=== PATIENT | female | born 1970 | race Caucasian/White ===

== ENCOUNTER 2025-01-24 10:03 | Emergency (ER) | payer OTHER, SELFPAY ==
[2025-01-24 10:04] VITALS: BP 167/83; PULSE 97; RESP 18; TEMP 36.7; O2SAT 99; BMI 38.5
--- NOTE | 2025-01-24 10:07 | XR_ITS ---
WS: [id number] Exam: XR chest 1V portable [id number] Date/Time of Exam: 01/24/2025 10:07 AM Reason For Exam: chest pain No priors. The lungs are clear and fully inflated. Normal cardiomediastinal silhouette and regional bony structures. XR/XR chest 1V portable [id number] IMPRESSION: 1. Negative chest.
--- NOTE | 2025-01-24 10:07 | ECG_ITS ---
[facility]25[facility] Pat Name: Ginger Aguilera Department: Room: Gender: Female Proposal Coordinator: : 1970 Requested By: Reginald Day Order Number: [id number] Phil MD: Isaak Galeano M.D. Measurements Intervals [place] Rate: 89 P: 43 NV: 151 QRS: 12 QRSD: 89 T: 58 QT: 368 QTc: 449 Interpretive Statements SINUS RHYTHM NONSPECIFIC T-WAVE ABNORMALITY No previous ECG available for comparison Electronically Signed On 01-25-2025 19:33:03 CDT by Isaak Galeano M.D. [id number]
--- NOTE | 2025-01-24 10:22 | ED_ITS ---
HPI - Chest Pain 2 General: Chief Complaint: Chest Pain Stated Complaint: Chest Pain Time Seen by Provider: 01/24/25 10:06 History of Present Illness: 54-year-old female presents emergency ro om complaining of chest discomfort and rapid heart rate extremely anxious since of impending doom. She has no known history of coronary disease she does have a history of hypertension and she is diabetic so her blood sugars have been irregular as well recently she is not having chest pain when she arrives here continues to be quite anxious mildly tachypneic. Associated symptoms: Deny abdominal pain, dyspnea or fever(s) Related Data Home Medications ?Medication ?Instructions ?Recorded ?Confirmed ibuprofen 200 mg tablet (Advil) 400 mg PO Q6H PRN Feve r Or Pain 01/24/25 01/24/25 lisinopril 20 mg tablet 20 mg PO DAILY 01/24/2512/28 metformin 1,000 mg tablet 1,000 mg PO BID 01/24/25 semaglutide 2 mg/dose (8 mg/3 mL) 2 mg SUBCUT Q7D 12/2801/24/25 subcutaneous pen injector (Ozempic) Allergies Allergy/AdvReac Type Severity Reaction Status Date / Time butorphanol (From Stadol) Allergy Unknown Verified 01/24/25 10:13 levofloxacin Allergy Unknown Verified 01/24/25 10:13 morphine Allergy Unknown Verified 01/24/25 10:13 piperacillin (From Zosyn) Allergy Unknown Verified 01/24/25 10:13 tazobactam (From Zosyn) Allergy Unknown Verified 01/24/25 10:13 Review of Systems 2 Const: Denies: fever(s) or chills Card: Denies: chest pain Resp: Denies: dyspnea GI: Denies: abdominal pain : Denies: dysuria, urinary frequency or urinary urgency Musc: Denies: neck pain or back pain Skin/Breast: Denies: rash Physical Exam 2 Const: GENERAL APPEARANCE: cooperative ORIENTATION/CONSCIOUSNESS: Yes awake, Yes oriented to person, Yes oriented to place and Yes oriented to time HENMT: COMMON NORMALS: normocephalic, atraumatic and hearing grossly normal bilaterally HEAD & SCALP: normocephalic and atraumatic Resp: COMMON NORMALS: normal respiratory effort, No retractions, No use of accessory muscles and clear to auscultation bilaterally AUSCULTATION: clear to auscultation bilaterally Cardio: COMMON NORMALS: regular rate, regular rhythm and No murmurs present (Cardio) RATE: regular rate RHYTHM: regular rhythm GI: COMMON NORMALS: Soft to palpation and No hepatosplenomegaly present A USCULTATION: Yes normoactive bowel sounds PALPATION: Yes Soft to palpation, No Tenderness to palpation present (GI), No Guarding due to palpation present (GI) and Yes No hepatosplenomegaly present Extremity: COMMON NORMALS: normal to inspection, capillary refill normal, no clubbing, cyanosis or edema, no calf tenderness and no pedal edema Neuro: SENSORIUM/ORIENTATION: Yes oriented to person, Yes oriented to place and Yes oriented to time Skin: COMMON NORMALS: no rashes or lesions noted GENERAL SKIN EXAM: no rashes or lesions noted Course 2 Vital Signs: Vital signs: Vital Signs Temperature 98.1 F 01/24/25 10:04 Pulse Rate 77 01/24/25 12:03 Respiratory Rate 16 01/24/25 12:03 Blood Pressure 144/72 01/24/25 12:03 Pulse Oximetry 96 01/24/25 12:03 Oxygen Delivery Me thod Room Air 01/24/25 12:03 MDM - Chest Pain Medical Decision Making EKGs cardiac enzymes negative no sign of DVT she has not been hypoxic chest x- ray did not show pneumonia or pneumothorax or widening the mediastinum. Suspect majority of her symptoms are anxiety related. I think she has some GI driven symptoms will discharge patient home have her follow-up with her primary care doctor. Will set her up for an outpatient Lexiscan sestamibi stress test Medical Records I reviewed the patient's medical records. Lab Data I reviewed the patient's lab results. 01/24/25 10:32 01/24/25 10:32 Radiology Impressions Chest X-Ray 01/24/25 10:07 IMPRESSION: 1. Negative chest. Laboratory Results WBC 9.90 10^3/uL (3.29-11.43) 01/24/25 10:32 RBC 4.89 10^6/uL (3.85-5.65) 01/24/25 10:32 Hgb 13.60 g/dL (11.27-16.99) 01/24/25 10:32 Hct 41.3 % (36-47) 01/24/25 10:32 MCV 84.5 fl (85-98) L 01/24/25 10:32 MCH 27.8 pg (27-33) 01/24/25 10:32 MCHC 32.9 g/dL (30-55) 01/24/25 10:32 RDW 13.2 % (12.1-15.1) 01/24/25 10:32 Plt Count 272 10^3/cmm (157-399) 01/24/25 10:32 MPV 11.1 fL (7.4-10.4) H 01/24/25 10:32 Neut % (Auto) 63.8 % 01/24/25 10:32 Lymph % (Auto) 28.4 % 01/24/25 10:32 [place] % (Auto) 5.1 % 01/24/25 10:32 Eos % (Auto) 1.7 % 01/24/25 10:32 Baso % (Auto) 0.6 % 01/24/25 10:32 Neut # (Auto) 6.32 10^3/uL (1.8-7.7) 01/24/25 10:32 Lymph # (Auto) 2.8 10^3/uL (0.8-4.8) 01/24/25 10:32 [place] # (Auto) 0.5 10^3/uL (0.2-0.9) 01/24/25 10:32 Eos # (Auto) 0.2 10^3/uL (0.0-0.8) 01/24/25 10:32 Baso # (Auto) 0.1 10^3/uL (0.0-0.1) 01/24/25 10:32 Nucleated RBC % (auto) 0 % 01/24/25 10:32 Nucleated RBCs # 0.0 /100WBC 01/24/25 10:32 Sodium 137 mmol/L (136-145) 01/24/25 10:32 Potassium 4.5 mmol/L (3.5-5.1) 01/24/25 10:32 Chloride 99 mmol/L (98-107) 01/24/25 10:32 Carbon Dioxide 25 mmol/L (22-29) 01/24/25 10:32 Anion Gap 17.5 (5-19) 01/24/25 10:32 BUN 12 mg/dL (6-20) 01/24/25 10:32 Creatinine 0.6 mg/dL (0.5-0.9) 01/24/25 10:32 GFR Calculation 104.2 mL/min (90-130) 01/24/25 10:32 Glucose 166 mg/dL (65-115) H 01/24/25 10:32 POC Glucose 111 mg/dL (70-110) H 01/24/25 13:01 Calculated Osmolality 288 mOsm/kg (285-295) 01/24/25 10:32 Calcium 9.3 mg/dL (8.5-10.5) 01/24/25 10:32 Total Bilirubin 0.4 mg/dL (0.15-1.2) 01/24/25 10:32 AST 11 U/L (0-32) 01/24/25 10:32 ALT 17 U/L (0-33) 01/24/25 10:32 Alkaline Phosphatase 113 U/L (35-105) H 01/24/25 10:32 Troponin T Baseline 8 ng/L (0-10) 01/24/25 10:32 Troponin T 120 Minute 7.64 ng/L (0-10) 01/24/25 12:36 Delta Troponin T -0.36 ABS# (0-10) L 01/24/25 12:36 Total Protein 6.8 g/dL (6.6-8.7) 01/24/25 10:32 Albumin 4.5 g/dL (3.5-5.2) 01/24/25 10:32 Globulin 2.3 g/dL (1.3-4.6) 01/24/25 10:32 Urine Color Yellow (Yellow) 01/24/25 10:15 Urine Appearance Clear (CLEAR) 01/24/25 10:15 Urine pH 6.0 (5-7) 01/24/25 10:15 Ur Specific [place] 1.017 (1.005-1.030) 01/24/25 10:15 Urine Protein 1+ (Negative) A 01/24/25 10:15 Urine Glucose (UA) Negative (Normal) 01/24/25 10:15 Urine Ketones Negative (Negative) 01/24/25 10:15 Urine Blood Negative (Negative) 01/24/25 10:15 Urine Nitrate Negative (Negative) 01/24/25 10:15 Urine Bilirubin Negative (Negative) 01/24/25 10:15 Urine Urobilinogen 0.2 mg/dL (Negative) 01/24/25 10:15 Ur Leukocyte Esterase Negative (Negative) 01/24/25 10:15 Urine RBC 0-2 /hpf (0-2) 01/24/25 10:15 Urine WBC 0-5 /hpf (0-5) 01/24/25 10:15 Ur Squamous Epith Cells 0-5 /hpf (0-5) 01/24/25 10:15 Amorphous Sediment Not Reportable 01/24/25 10:15 Urine Bacteria None seen /hpf (NONE) 01/24/25 10:15 Hyaline Casts 0.40 /lpf 01/24/25 10:15 All radiology interpretation(s) finalized by discharge Discharge Plan Discharge Patient Disposition: Home Clinical Impression: Atypical chest pain, Diabetes mellitus Condition: Stable Prescriptions: No Action lisinopril 20 mg tablet 20 mg PO DAILY Patient Comments: Patient states she is not consistant in taking her medications metformin 1,000 mg tablet 1,000 mg PO BID Ozempic 2 mg/dose (8 mg/3 mL) pen injector 2 mg SUBCUT Q7D ibuprofen [Advil] 200 mg Tablet 400 mg PO Q6H PRN (Reason: Fever Or Pain) Discharge Orders: Discharge ED (Routine); Ordered 01/24/25 Ordered By: Reginald Bateman Referrals: Jet Perez DO [Primary Care Provider, Emergency Medicine] Discharge Diet: Usual diet Discharge Activity: Resume usual activity Patient Instructions: Opioid Safety, Pain Management, Patient Portal & Ronnie Instructions Activity Restrictions/Additional Instructions: Thank you for choosing [facility] for your healthcare needs today. It is very important that you follow up as instructed or that you return to the Emergency Department should you have concerns or if your condition changes or worsens in any way. Emergency department visits are focused on emergent conditions, in some cases you may require further evaluation on an outpatient basis. You were seen in the emergency room with complaints of chest discomfort. Cardiac enzymes and EKG were normal. Your other lab tests are also unremarkable. Suspect some of your symptoms may be related to gastrointestinal some related potentially to anxiety. Recommend you start an [id number] Pepcid or Prilosec. Follow-up with your primary care doctor. You had asked about blood sugar control recommend you follow-up with your primary care doctor regarding blood pressure sugar management. (Please note that included in your discharge packet is information concerning opioid safety and pain management. This information is given to all patients were discharged from the ER regardless of their discharge diagnosis or the medicines they usually take or are prescribed.) Print Language: Gabonese Coding Level of Care Code ED Education Courses Sales Representative for Chg Fwd Heart Score HEART Score Components History: Slightly Suspicous EKG: Normal Age: 45-64 yrs Risk Factors: 1 or 2 Risk Factors Troponin: Baseline Trop <16 ng/L HEART Score RESULT HEART Score: 2
--- OUTSIDE RECORDS SUMMARY | 2025-01-24 10:27 | XMS_ITS | Encounter Summary ---
Author Organization [facility] Address [address] [place] [address] Care Team Providers Care Reel Worker Name Role Phone Ollie Avilez MD Primary Care Provider + Encounter Details Date Type Department Care Team (Late st Contact Info) Description 10/24/2004 Outpatient Historical 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
--- OUTSIDE RECORDS SUMMARY | 2025-01-24 10:27 | XMS_ITS | Encounter Summary ---
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
--- OUTSIDE RECORDS SUMMARY | 2025-01-24 10:27 | XMS_ITS | Encounter Summary ---
Author Organization [facility] Address [address] [place] [address] Care Team Providers Care Global Professional Name Role Phone Ollie Avilez MD Primary Care Provider + Encounter Details Date Type Department Care Team (Latest Contact Info) Description 07/11/1999 Outpatient Historical [facility] [address] [place] [address] Benedicto Mir MD NO ADDRESS ON FILE Abdominal (Primary Dx) Social History Tobacco Use Types Packs/Day Years Used Date Smoking Tobacco: Never Assessed Comments Unknown Sex and Gender Information Value Date Recorded Sex Assigned at Not on file Legal Sex Female 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
--- OUTSIDE RECORDS SUMMARY | 2025-01-24 10:27 | XMS_ITS | Encounter Summary ---
Author Organization [facility] Address [address] [place] [address] Care Team Providers Care Commutator Inspector Name Role Phone Ollie Avilez MD Primary Care Provider + Encounter Details Date Type Department Care Team (Latest Contact Info) Description 12/24/1997 Outpatient Historical [facility] [address] [phone] Lexa Echavarria MD [address] [place] [phone] General counseling for prescription of oral contraceptives (Primary Dx); Dysthymic disorder Social History Tobacco Use Types Packs/Day Years Used Date Smoking Tobacco: Never Assessed Comments Unknown Sex and Gender Information Value Date Recorded Sex Assigned at Not on file 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
--- OUTSIDE RECORDS SUMMARY | 2025-01-24 10:27 | XMS_ITS | Encounter Summary ---
Author Organization [facility] Address [address] [facility] Attn: [place] [address] Care Team Providers Care Petroleum Laboratory Technician Name Role Phone Ollie Avilez MD Primary Care Provider + Encounter Details Date Type Department Care Team (Late st Contact Info) Description 07/18/1999 Outpatient Historical Carrington Lam MD [address] [facility] [address] [place] [phone] Social History Tobacco Use Types Packs/Day Years Used Date Smoking Tobacco: Never Assessed Comments Unknown Sex and Gender Information Value Date Recorded Sex Assigned at Not on file Legal Sex Female 4:46 AM DIE SINKING MACHINE OPERATOR Gender Identity Not on file Sexual Orientation Not on file documented as of this encounter Plan of Treatment Not on file documented as of this encounter Visit Diagnoses Not on filedocumented in this encounter Care Teams Petroleum Laboratory Technician Relationship Specialty Start Date End Date Ollie Avilez MD PCP - General Family Practice 05/21/15 documented as of this encounter
--- OUTSIDE RECORDS SUMMARY | 2025-01-24 10:27 | XMS_ITS | Encounter Summary ---
Author Organization [facility] Address [address] [facility] Attn: Epic Prelude [place]T [place] [address] Care Team Providers Care Chief Marketing Officer Name Role Phone Ollie Avilez MD Primary Care Provider + Encounter Details Date Type Department Care Team (Late st Contact Info) Description 07/11/1999 Outpatient Historical Benedicto Mir MD NO ADDRESS ON FILE Social History Tobacco Use Types Packs/Day Years Used Date Smoking Tobacco: Never Assessed Comments Unknown Sex and Gender Information Value Date Recorded Sex Assigned at Not on file Legal Sex Female 4:46 AM MEDICAL DIRECTOR/HEAD TEAM PHYSICIAN Gender Identity Not on file Sexual Orientation Not on file documented as of this encounter Plan of Treatment Not on file documented as of this encounter Visit Diagnoses Not on filedocumented in this encounter Care Teams Chief Marketing Officer Relationship Specialty Start Date End Date Ollie Avilez MD PCP - General Family Practice 05/21/15 documented as of this encounter
--- OUTSIDE RECORDS SUMMARY | 2025-01-24 10:27 | XMS_ITS | Encounter Summary ---
Author Organization [facility] Address [address] [place] [address] Care Team Providers Care Bowling Floor Desk Clerk Name Role Phone Ollie Avilez MD Primary Care Provider + Encounter Details Date Type Department Care Team (Late st Contact Info) Description 06/17/1998 Outpatient Historical [facility] [address] [place] [address] [place] [address] Social History Tobacco Use Types Packs/Day Years Used Date Smoking Tobacco: Never Assessed Comments Unknown Sex and Gender Information Value Date Recorded Sex Assigned at Not on file Legal Sex Female 4:46 AM BENCH PRECISION ASSEMBLER Gender Identity Not on file Sexual Orientation Not on file documented as of this encounter Plan of Treatment Not on file documented as of this encounter Visit Diagnoses Not on filedocumented in this encounter Care Teams Bowling Floor Desk Clerk Relationship Specialty Start Date End Date Ollie Avilez MD PCP - General Family Practice 05/21/15 documented as of this encounter
--- OUTSIDE RECORDS SUMMARY | 2025-01-24 10:27 | XMS_ITS | Encounter Summary ---
Author Organization [facility] Address [address] [place] [address] Care Team Providers Care Nuclear Supervising Operator Name Role Phone Ollie Avilez MD Primary Care Provider + Encounter Details Date Type Department Care Team (Latest Contact Info) Description 08/18/2000 Outpatient Historical [facility] Steve Lewis, DO [address] [place] [address] Abdominal pain, unspecified site (Primary Dx) Social History Tobacco Use Types Packs/Day Years Used Date Smoking Tobacco: Never Assessed Comments Unknown Sex and Gender Information Value Date Recorded Sex Assigned at Not on file Legal Sex Female 4:46 AM DRAFTER TOPOGRAPHICAL Gender Identity Not on file Sexual Orientation Not on file documented as of this encounter Plan of Treatment Not on file documented as of this encounter Visit Diagnoses Diagnosis Abdominal pain, unspecified site- Primary documented in this encounter Care Teams Nuclear Supervising Operator Relationship Specialty Start Date End Date Ollie Avilez MD PCP - General Family Practice 05/21/15 documented as of this encounter
--- OUTSIDE RECORDS SUMMARY | 2025-01-24 10:27 | XMS_ITS | Encounter Summary ---
Author Organization [facility] Address [address] [place] [address] Care Team Providers Care Crew Truck Driver Name Role Phone Ollie Avilez MD Primary Care Provider + Encounter Details Date Type Department Care Team (Latest Contact Info) Description 04/29/2000 Outpatient Historical [facility] KILLINGWORTH BAKERY HELPER Steve Lewis, DO [address] [place] [address] Other specified aftercare following surgery (Primary Dx) Social History Tobacco Use Types Packs/Day Years Used Date Smoking Tobacco: Never Assessed Comments Unknown Sex and Gender Information Value Date Recorded Sex Assigned at Not on file Legal Sex Female 4:46 AM TIRE BALANCER Gender Identity Not on file Sexual Orientation Not on file documented as of this encounter Plan of Treatment Not on file documented as of this encounter Visit Diagnoses Diagnosis Other specified aftercare following surgery- Primary documented in this encounter Care Teams Crew Truck Driver Relationship Specialty Start Date End Date Ollie Avilez MD PCP - General Family Practice 05/21/15 documented as of this encounter
--- OUTSIDE RECORDS SUMMARY | 2025-01-24 10:27 | XMS_ITS | Encounter Summary ---
Author Organization [facility] Address [address] [place] [address] Care Team Providers Care Manufacturing Coordinator Name Role Phone Ollie Avilez MD Primary Care Provider + Encounter Details Date Type Department Care Team (Latest Contact Info) Description 04/15/2000 Outpatient Historical [facility] BLUE EYE FRAME STRAIGHTENER Steve Lewis, DO [address] [place] [address] Supervision of other normal (Primary Dx) Social History Tobacco Use Types Packs/Day Years Used Date Smoking Tobacco: Never Assessed Comments Unknown Sex and Gender Information Value Date Recorded Sex Assigned at Not on file Legal Sex Female 4:46 AM TUBER OPERATOR Gender Identity Not on file Sexual Orientation Not on file documented as of this encounter Plan of Treatment Not on file documented as of this encounter Visit Diagnoses Diagnosis Supervision of other normal - Primary documented in this encounter Care Teams Manufacturing Coordinator Relationship Specialty Start Date End Date Ollie Avilez MD PCP - General Family Practice 05/21/15 documented as of this encounter
--- OUTSIDE RECORDS SUMMARY | 2025-01-24 10:27 | XMS_ITS | Clinical Summary ---
Author Organization [facility] Address [address] [place] [address] Phone Care Team Providers Care Regulatory Submissions Associate Name Role Phone Ollie Avilez MD Primary Care Provider + Allergies Active Allergy Reactions Criticality Noted Date Comments Butorphanol Tartrate Hallucination High 03/20/2011 Fd And C Blue No.1 Anaphylaxis High 10/08/2010 Levofloxacin Anaphylaxis High 08/16/2018 Morphine Anaphylaxis High 10/08/2010 Piperacillin-Tazobactam Anaphylaxis High 08/16/2018 Medications magnesium oxide 500 mg Capsule Take 500 mg by mouth daily. Active cyanocobalamin (VITAMIN B-12) 100 mcg tablet Take 100 mcg by mouth daily. Active multivitamin (DAILY-MELISSA) tablet Take 1 Tablet by mouth daily. Active CPAP / BIPAP suppliesIndicat ions:ANABELA treated with BiPAP Length of need: 99 months Mask Type: nasal with headgear every 6 months, mask only every 3 months,1 cushions per month. Tubing: heated 1 every 3 months, water chamber 1 every 6 months, chin strap 1 every 6 months, filters disposable 2 per month, filters reusable 1 per 6 months.. 1 Each 08/16/2018 Active metFORMIN (GLUCOPHAGE) 1,000 mg tablet Take 1 Tablet (1,000 mg) by mouth 2 times daily. 180 Tablet 3 01/24/2019 Active Active Problems Problem Noted Date Diagnosed Date Morbid obesity 03/20/2012 Stress incontinence, female 03/20/2012 Thyroid nodule 03/10/2012 Screening for cervical cancer 03/07/2012 Overview (03/07/2012): Normal 02/26/12 Dyslipidemia (high LDL; low HDL) 11/12/2010 Type II or unspecified type diabetes mellitus without mention of complication, not stated as uncontrolled 11/12/2010 Immunizations Immunization Administration Dates Next Due Influenza Seasonal Unspecified Formulation IM Family History Medical History Relation Name Comments Unknown Father Hypertension Mother Other Mother Respiratory Disease Mother Relation Name Status Comments Father Alive Mother Alive Social History Tobacco Use Types Packs/Day Years Used Date Smoking Tobacco: Never Smokeless Tobacco: Never Tobacco Cessation:Counseling Given: No Alcohol Use Standard Drinks/Week Comments Not Asked 0 (1 standard drink = 0.6 oz pur e alcohol) Comments No Sex and Gender Information Value Date Recorded Sex Assigned at Not on file Legal Sex Female 4:46 AM SHOVEL LOADER OPERATOR Gender Identity Not on file Sexual Orientation Not on file Last Filed Vital Signs Vital Sign Reading Time Taken Comments Blood Pressure 122/88 08/16/2018 1:23 PM CDT Pulse 103 08/16/2018 1:23 PM CDT Temperature 36.2 C (97.2 F) 08/16/2018 1:23 PM CDT Respiratory Rate 20 12/13/2015 3:39 PM CDT Oxygen Saturation 96% 08/16/2018 1:23 PM CDT Inhaled Oxygen Concentration - - Weight 121 kg (266 lb 12.8 oz) 08/16/2018 1:23 P M CDT Height 157.5 cm (5' 2 ) 08/16/2018 1:23 PM CDT Body Mass Index 48.8 08/16/2018 1:23 PM CDT Plan of Treatment Health Maintenance Due Date Last Done Comments DIABETES ANNUAL RETINAL EXAM 1988 DTAP/TDAP/TD VACCINES (1 - Tdap) 1989 HEPATITIS B VACCINES (1 of 3 - 19+ 3-dose series) 1989 BREAST CANCER SCREENING 2010 DIABETES ANNUAL FOOT EXAM 11/11/2011 11/10/2010 DIABETES MICROALBUMIN ANNUAL SCREEN 11/11/2011 11/10/2010 PAP SMEAR 02/25/2015 02/26/2012, 08/09/2008 COLORECTAL SCREENING 12/01/2015 Colorectal Cancer Screening 12/01/2015 FIT-DNA Q 3 years 12/01/2015 FIT/FOBT Q 1 year 12/01/2015 Flex Sig/CT Colonography Q 5 years 12/01/2015 LDL CHOLESTEROL ANNUAL 05/17/2016 6, 04/08/2012, 11/10/2010 CERVICAL CANCER SCREENING 02/25/2017 HPV/Cotest (21-29) 02/25/2017 02/26/2012 HPV/Cotest (30-65) 02/25/2017 02/26/2012 DIABETES HBA1C Q 6 MONTHS 02/16/20192018, 12/13/2015, 08/16/2015, Additional history exists ZOSTER VACCINE (1 of 2) 2020 INFLUENZA VACCINE (#1) 2024 03/02/2003 Procedures Procedure Name Priority Date/Time Associated Diagnosis Comments HEMOGLOBIN A1C Routine 08/16/2018 2:38 PM CDT Type 2 diabetes mellitus without complication, without long-term current use of insulin (CMS/[facility]) LIPID PANEL Routine 05/17/2015 2:32 PM SHOVEL LOADER OPERATOR Mixed hyperlipidemia CERV/VAG CYTOPATH, THIN PREP IMAGR RFLX HPV Routine 02/26/2012 3:50 PM SHOVEL LOADER OPERATOR MICROALBUMIN/CREATI NINE RATIO, RANDOM UR Routine 11/10/2010 11:07 AM CDT DM w/o complication type II (CMS/[facility]) from Last 3 Months or Most Recently Relevant to Health Maintenance Results * (ABNORMAL) HEMOGLOBIN A1C (08/16/2018 2:38 PM CDT) HEMOGLOBIN A1C 8.2(H) See Comment % 08/16/2018 8:43 PM CDT [facility] EST. AVG GLUCOSE, A1C 189 mg/dL 08/16/2018 8:43 PM CDT [facility] Blood Venipuncture / Unknown 08/16/2018 2:38 PM CDT 08/16/2018 8:10 PM CDT Narrative [facility] - 08/16/2018 8:43 PM CDT HGB A1C INTERPRETATION NORMAL: <5.7% PRE-DIABETES: 5.7 - 6.4% DIABETES: 6.5% OR GREATER Falsely low A1C measurements can occur when: 1. Anemia and/or hemolytic anemia is present. 2. Hemoglobin variants present. 3. Renal failure. 4. Transfusion of blood product in the last 120 days. We recommend ordering a fructosamine test([id number]) to more accurately assess glycemic status if any of the above conditions are present. us Hellen Garibay FILTER PRESS TENDER CHEMISTRY ORDERABLES Final Re sult [facility] CLIA# [id number] [address] [place] [address] * (ABNORMAL) LIPID PANEL (05/17/2015 2:32 PM SHOVEL LOADER OPERATOR) [facility] CHOLESTEROL 178 <200 mg/dL 05/17/2015 8:43 PM [facility] TRIGLYCERIDE 203(H) <150 mg/dL 05/17/2015 8:43 PM [facility] ALEXA HDL 35(L) 40 - 59 mg/dL 05/17/2015 8:43 PM [facility] LDL CALCULATED 102(H) <100 mg/dL 05/17/2015 8:43 PM [facility] NON-HDL CHOLESTEROL 143(H) <130 mg/dL 05/17/2015 8:43 PM [facility] Blood Collection / Unknown 05/17/2015 2:32 PM SHOVEL LOADER OPERATOR 05/17/2015 8:04 PM SHOVEL LOADER OPERATOR Narrative [facility] - 05/17/2015 8:43 PM SHOVEL LOADER OPERATOR TOTAL CHOLESTEROL mg/dL Desirable <200 Borderline high 200-239 High >=240 TRIGLYCERIDES mg/dL Normal <150 Borderline high 150-199 High 200-499 Very high >=500 HDL CHOLESTEROL mg/dL Low <40 Normal 40-59 Desirable >=60 LDL CHOLESTEROL mg/dL Optimal <100 Low risk 100-129 Borderline high 130-159 High 160-189 Very high >=190 NON HDL CHOLESTEROL mg/dL Optimal <130 Near Optimal 130-159 Borderline High 160-189 High 190-219 Very high >=220 Based on AHA/NCEP Guidelines us Ollie Avilez MD CHEMISTRY ORDERABLES Fin al Result [facility] CLIA# [id number] [address] [place] [address] * CERV/VAG CYTOPATH, THIN PREP IMAGR RFLX HPV (02/26/2012 3:50 PM SHOVEL LOADER OPERATOR) [facility] COMB SETTER CYTOLOGY REPORT REFLEX HPV [facility] Anatomic Pathology Dept [address] [address] Patient: GINGER AGUILERA Accn No: [id number] , [id number] Collected: 02/26/2012 3:50:00 PM All cases except those with a DP prefix are performed by pathologists from [facility] at [facility]. Case type DP is performed by Dr. Elías Brady, [facility], [facility] [address], [address], [place] [address] (CLIA #[id number]) (Ph. [phone]). COMB SETTER PAP - REFLEX HPV History Specimen Type: Endocervical LMP: 02/16/12 Previous Pap History: 2001 WNL Specimen Adequacy Satisfactory for interpretation. The smear shows sufficient numbers of endocervical or metaplastic cells. Diagnosis NEGATIVE FOR INTRAEPITHELIAL LESION OR MALIGNANCY. (Previously noted as Within Normal Limits). Elevator Builder/ EDR Pathologist: 03/04/12 Completed by: NAHUN GU BSCT (ASCP) (Electronically signed by) 03/04/12 Comment Routine follow-up is suggested. Important Information About Pap Smears The Pap smear is associated with a low but well-documented and probably irreducible false negative rate of up to 10%. Additionally, the false positive rate for a diagnosis of invasive carcinoma or HSIL has been estimated to be approximately 1-10%. Therefore, any visible lesion on the cervix should be biopsied regardless of Pap smear findings. HPV Testing off the Thin Prep vial can be done as a means of further evaluating a Thin Prep Report. For information about ordering the HPV test, phone Virology at . Treatment or follow-up recommendations (if any) that are contained within this report are based upon general recommendations as contained in 2001 Consensus Guidelines For Cervical Cytological Abnormalities DE: July 20, 2001, and are provided as a general guideline rather than as a specific recommendation. Final decisions about the most appropriate treatment and follow-up should be made on an individualized basis by the treating physician in consultation with his/her patient. [facility] [employer] [facility] 02/26/2012 3:50 PM SHOVEL LOADER OPERATOR Anitha Valentino MD PATHOLOGY/CYTOLOGY ORDERAB LES Edited Performing Organization Address City/[facility] Co de Phone Number INTERFACE SYSTEM Refer to clinic/hospital department [facility] CLIA# [id number] [address] [place] [address] * MICROALBUMIN/CREATININE RATIO, RANDOM UR (11/10/2010 11:07 AM CDT) MICROALBUMIN URINE 0.4 MG/DL [facility] Creatinine, Urine 115 MG/DL [facility] MICROALBUMIN/CREA T RATIO, UR 3.5 MCG/MG CREAT. [facility] Comment: NORMAL: <30 MCG/MG CREAT MICROALBUMINURIA: 30-300 MCG/MG CREAT CLINICAL ALBUMINURIA: >300 MCG/MG CREAT Urine specimen (specimen) 11/10/2010 11:07 AM CDT 11/10/2010 11:08 AM CDT Result [facility] Anitha Valentino MD URINE ORDERABLES Final Res ult Performing Organization Address [facility] de Phone Number [facility] CLIA# [id number] [address] [place] [address] from Last 3 Months or Most Recently Relevant to Health Maintenance Insurance BLUE CROSS PATHWAY(X) EXCHANGE BLUE CROSS PATHWAY(X) EXCHANGE Care Teams Regulatory Submissions Associate Relationship Specialty Start Date End Date Ollie Avilez MD PCP - General Family Practice 05/21/15
--- OUTSIDE RECORDS SUMMARY | 2025-01-24 10:27 | XMS_ITS | Encounter Summary ---
Author Organization [facility] Address [address] [place] [address] Care Team Providers Care Logging Worker Name Role Phone Ollie Avilez MD Primary Care Provider + Encounter Details Date Type Department Care Team (Late st Contact Info) Description 03/02/2003 Outpatient Historical [facility] Medicine [address] [phone] Navneet Garza, DO [address] [place] [address] Vaccine for influenza (Primary Dx) Social History Tobacco Use Types Packs/Day Years Used Date Smoking Tobacco: Never Assessed Comments Unknown Sex and Gender Information Value Date Recorded Sex Assigned at Not on file Legal Sex Female 4:46 AM RECREATION SUPERINTENDENT Gender Identity Not on file Sexual Orientation Not on file documented as of this encounter Plan of Treatment Not on file documented as of this encounter Visit Diagnoses Diagnosis Vaccine for influenza- Primary Need for prophylactic vaccination and inoculation against influenza documented in this encounter Care Teams Logging Worker Relationship Specialty Start Date End Date Ollie Avilez MD PCP - General Family Practice 05/21/15 documented as of this encounter
--- OUTSIDE RECORDS SUMMARY | 2025-01-24 10:27 | XMS_ITS | Clinical Summary ---
Author Organization [facility] Address [address] Attn: Epic Prelude ADT [place] [address] Care Team Providers Care Tying Machine Operator Name Role Phone Ollie Avilez MD Primary Care Provider + Allergies Active Allergy Reactions Criticality Noted Date Comments Butorphanol Tartrate Hallucination High 03/20/2011 Fd And C Blue No.1 Anaphylaxis High 10/08/2010 Levofloxacin Anaphylaxis High 08/16/2018 Morphine Anaphylaxis High 10/08/2010 Piperacillin-Tazobactam Anaphylaxis High 08/16/2018 Medications metFORMIN (GLUCOPHAGE) 1,000 mg tablet Take 1 Tablet (1,000 mg) by mouth 2 times daily. 180 Tablet 3 9 Active cyanocobalamin (VITAMIN B-12) 100 mcg tablet Take 100 mcg by mouth daily. 9 Active magnesium oxide 500 mg Capsule Take 500 mg by mouth daily. 9 Active multivitamin (DAILY-MELISSA) tablet Take 1 Tablet by mouth daily. 9 Active CPAP / BIPAP suppliesIndicat ions:ANABELA treated with BiPAP Length of need: 99 monthsMask Type: nasal with headgear every 6 months, mask only every 3 months,1 cushions per month. Tubing: heated 1 every 3 months, water chamber 1 every 6 months, chin strap 1 every 6 months, filters disposable 2 per month, filters reusable 1 per 6 months.. 1 Each 0 9 Active Active Problems Problem Noted Date Diagnosed Date Stress incontinence, female 03/20/2012 Morbid obesity 03/20/2012 Thyroid nodule 03/10/2012 Screening for cervical cancer 03/07/2012 Overview (07/25/2020): Normal 02/26/12 Dyslipidemia (high LDL; low HDL) [...] Date Smoking Tobacco: Never Smokeless Tobacco: Never Alcohol Use Standard Drinks/Week Comments Not Asked 0 (1 standard drink = 0.6 oz pur e alcohol) Comments Unknown Sex and Gender Information Value Date Recorded Sex Assigned at Not on file Legal Sex Female 5:24 AM HEATING AND VENTILATING WORKER Gender Identity Not on file Sexual Orientation Not on file Last Filed Vital Signs Vital Sign Reading Time Taken Comments Blood Pressure 122/88 08/16/2018 1:23 PM CDT Pulse 103 08/16/2018 1:23 PM CDT Temperature 36.2 C (97.2 F) 08/16/2018 1:23 PM CDT Respiratory Rate 20 12/13/2015 3:39 PM CDT Oxygen Saturation - - Inhaled Oxygen Concentration - - Weight 121 kg (266 lb 12.8 oz) 08/16/2018 1:23 P M CDT Height 157.5 cm (5' 2 ) 08/16/2018 1:23 PM CDT Body Mass Index 48.8 08/16/2018 1:23 PM CDT Plan of Treatment Health Maintenance Due Date Last Done Comments DIABETES ANNUAL RETINAL EXAM 1988 DIABETES MICROALBUMIN ANNUAL SCREEN 1988 DTAP/TDAP/TD VACCINES (1 - Tdap) 1989 HEPATITIS B VACCINES (1 of 3 - 19+ 3-dose series) 1989 HPV/Cotest (21-29) 12/01/1991 CERVICAL CANCER SCREENING 2000 HPV/Cotest (30-65) 2000 PAP SMEAR 2000 BREAST CANCER SCREENING 2010 DIABETES ANNUAL FOOT EXAM 11/11/2011 11/10/2010 COLORECTAL SCREENING 12/01/2015 Colorectal Cancer Screening 12/01/2015 FIT-DNA Q 3 years 12/01/2015 FIT/FOBT Q 1 year 12/01/2015 Flex Sig/CT Colonography Q 5 years 12/01/2015 LDL CHOLESTEROL ANNUAL 05/17/2016 05/17/2015 DIABETES HBA1C Q 6 MONTHS 02/16/20192018, 08/16/2018, 12/13/2015, Additional history exists ZOSTER VACCINE (1 of 2) 2020 INFLUENZA VACCINE (#1) 2024 03/02/2003 Procedures Procedure Name Priority Date/Time Associated Diagnosis Comments HEMOGLOBIN A1C Routine 08/16/2018 2:38 PM CDT LIPID PANEL Routine 05/17/2015 2:32 PM HEATING AND VENTILATING WORKER from Last 3 Months or Most Recently Relevant to Health Maintenance Results * (ABNORMAL) HEMOGLOBIN A1C (08/16/2018 2:38 PM CDT) HEMOGLOBIN A1C 8.2(H) See Comment % 08/16/2018 8:43 PM CDT [facility] EST. AVG GLUCOSE, A1C 189 mg/dL 08/16/2018 8:43 PM CDT [facility] Blood Venipuncture / Unknown 08/16/2018 2:38 PM CDT 08/16/2018 8:10 PM CDT Narrative [facility] - 08/16/2018 8:43 PM CDT HGB A1C INTERPRETATION NORMAL: <5.7% PRE-DIABETES: 5.7 - 6.4% DIABETES: 6.5% OR GREATER Falsely low A1C measurements can occur when: 1. Anemia and/or hemolytic anemia is present. 2. Hemoglobin variants present. 3. Renal failure. 4. Transfusion of blood product in the last 120 days. We recommend ordering a fructosamine test([id number]) to more accurately assess glycemic status if any of the above conditions are present. us Hellen Garibay TURBINE ROOM ATTENDANT CHEMISTRY ORDERABLES Final Re sult [facility] CLIA# [id number] [facility] [place] [address] * (ABNORMAL) LIPID PANEL (05/17/2015 2:32 PM HEATING AND VENTILATING WORKER) CHOLESTEROL 178 <200 mg/dL 05/17/2015 8:43 PM [facility] TRIGLYCERIDE 203(H) <150 mg/dL 05/17/2015 8:43 PM [facility] HDL 35(L) 40 - 59 mg/dL 05/17/2015 8:43 PM [facility] A[facility]XA LDL CALCULATED 102(H) <100 mg/dL 05/17/2015 8:43 PM [facility] NON-HDL CHOLESTEROL 143(H) <130 mg/dL 05/17/2015 8:43 PM [facility] Blood Collection / Unknown 05/17/2015 2:32 PM HEATING AND VENTILATING WORKER 05/17/2015 8:04 PM HEATING AND VENTILATING WORKER Narrative [facility] - 05/17/2015 8:43 PM HEATING AND VENTILATING WORKER TOTAL CHOLESTEROL mg/dL Desirable <200 Borderline high [...] Avilez MD CHEMISTRY ORDERABLES Fin al Result [facility] CLIA# [id number] [address] [place] [address] from Last 3 Months or Most Recently Relevant to Health Maintenance Care Teams Tying Machine Operator Relationship Specialty Start Date End Date Ollie Avilez MD [address] [place] [id number] PCP - General Family Practice 05/21/15
--- OUTSIDE RECORDS SUMMARY | 2025-01-24 10:27 | XMS_ITS | Encounter Summary ---
Author Organization [facility] Address [address] [place] [address] Care Team Providers Care Public Policy Mediator Name Role Phone Ollie Avilez MD Primary Care Provider + Encounter Details Date Type Department Care Team (Latest Contact Info) Description 07/11/1999 Outpatient Historical [facility] Medicine[address] [phone] Carrington Lam MD [address] [phone] Unspecified ectopic (Primary Dx) Social History Tobacco Use Types Packs/Day Years Used Date Smoking Tobacco: Never Assessed Comments Unknown Sex and Gender Information Value Date Recorded Sex Assigned at Not on file Legal Sex Female 4:46 AM POWER SEWING MACHINE OPERATOR Gender Identity Not on file Sexual Orientation Not on file documented as of this encounter Plan of Treatment Not on file documented as of this encounter Visit Diagnoses Diagnosis Unspecified ectopic - Primary documented in this encounter Care Teams Public Policy Mediator Relationship Specialty Start Date End Date Ollie Avilez MD PCP - General Family Practice 05/21/15 documented as of this encounter
--- OUTSIDE RECORDS SUMMARY | 2025-01-24 10:27 | XMS_ITS | Encounter Summary ---
Author Organization [facility] Address [address] [place] [address] Care Team Providers Care Leadlighter Name Role Phone Ollie Avilez MD Primary Care Provider + Encounter Details Date Type Department Care Team (Latest Contact Info) Description 05/20/1998 Outpatient Historical [facility] Medicine [address] [phone] Lexa Echavarria MD [address] [place] [phone] Chest pain, unspecified (Primary Dx) Social History Tobacco Use Types Packs/Day Years Used Date Smoking Tobacco: Never Assessed Comments Unknown Sex and Gender Information Value Date Recorded Sex Assigned at Not on file Legal Sex Female 4:46 AM SQL SSRS SSIS DEVELOPER Gender Identity Not on file Sexual Orientation Not on file documented as of this encounter Plan of Treatment Not on file documented as of this encounter Visit Diagnoses Diagnosis Chest pain, unspecified- Primary documented in this encounter Care Teams Leadlighter Relationship Specialty Start Date End Date Ollie Avilez MD PCP - General Family Practice 05/21/15 documented as of this encounter
--- OUTSIDE RECORDS SUMMARY | 2025-01-24 10:27 | XMS_ITS | Encounter Summary ---
Author Organization [facility] Address [address] [place] [address] Care Team Providers Care Clinical Psychiatrist Name Role Phone Ollie Avilez MD Primary Care Provider + Encounter Details Date Type Department Care Team (Latest Contact Info) Description 07/31/1998 Outpatient Historical [facility] Medicine [address] [phone] Lexa Echavarria MD [address] [place] [phone] Acute pharyngitis (Primary Dx); Infective otitis externa, unspecified Social History Tobacco Use Types Packs/Day Years Used Date Smoking Tobacco: Never Assessed Comments Unknown Sex and Gender Information Value Date Recorded Sex Assigned at Not on file Legal Sex Female 4:46 AM WET WASHER MACHINE Gender Identity Not on file Sexual Orientation Not on file documented as of this encounter Plan of Treatment Not on file documented as of this encounter Visit Diagnoses Diagnosis Acute pharyngitis- Primary Infective otitis externa, unspecified documented in this encounter Care Teams Clinical Psychiatrist Relationship Specialty Start Date End Date Ollie Avilez MD PCP - General Family Practice 05/21/15 documented as of this encounter
--- OUTSIDE RECORDS SUMMARY | 2025-01-24 10:27 | XMS_ITS | Encounter Summary ---
Author Organization [facility] Address [address] [place] [address] Care Team Providers Care Gasoline Attendant Name Role Phone Ollie Avilez MD Primary Care Provider + Encounter Details Date Type Department Care Team (Late st Contact Info) Description 05/25/2003 Outpatient Historical [facility] Medicine [address] [phone] Navneet Garza, DO [address] [place] [phone] ACUTE URI NOS (Primary Dx); ACUTE PHARYNGITIS Social History Tobacco Use Types Packs/Day Years Used Date Smoking Tobacco: Never Assessed Comments Unknown Sex and Gender Information Value Date Recorded Sex Assigned at Not on file Legal Sex Female 4:46 AM INTERLOCKING TOWER OPERATOR Gender Identity Not on file Sexual Orientation Not on file documented as of this encounter Plan of Treatment Not on file documented as of this encounter Visit Diagnoses Diagnosis Acute upper respiratory infections of unspecified site- Primary Acute pharyngitis documented in this encounter Care Teams Gasoline Attendant Relationship Specialty Start Date End Date Ollie Avilez MD PCP - General Family Practice 05/21/15 documented as of this encounter
--- OUTSIDE RECORDS SUMMARY | 2025-01-24 10:27 | XMS_ITS | Encounter Summary ---
Author Organization [facility] Address [address] [place] [address] Care Team Providers Care Installation Supervisor Name Role Phone Ollie Avilez MD Primary Care Provider + Encounter Details Date Type Department Care Team (Late st Contact Info) Description 09/07/1998 Outpatient Historical [facility] [address] [place] [address] Social History Tobacco Use Types Packs/Day Years Used Date Smoking Tobacco: Never Assessed Comments Unknown Sex and Gender Information Value Date Recorded Sex Assigned at Not on file Legal Sex Female 4:46 AM CLIENT RELATIONS ASSOCIATE Gender Identity Not on file Sexual Orientation Not on file documented as of this encounter Plan of Treatment Not on file documented as of this encounter Visit Diagnoses Not on filedocumented in this encounter Care Teams Installation Supervisor Relationship Specialty Start Date End Date Ollie Avilez MD PCP - General Family Practice 05/21/15 documented as of this encounter
--- OUTSIDE RECORDS SUMMARY | 2025-01-24 10:27 | XMS_ITS | Encounter Summary ---
Author Organization [facility] Address [address] [place] [address] Care Team Providers Care Marine Engine Machinist Apprentice Name Role Phone Ollie Avilez MD Primary Care Provider + Encounter Details Date Type Department Care Team (Latest Contact Info) Description 07/10/1999 Outpatient Historical [facility] Medicine[address] [address] Carrington Lam MD [address] [phone] Threatened , antepartum (Primary Dx) Social History Tobacco Use Types Packs/Day Years Used Date Smoking Tobacco: Never Assessed Comments Unknown Sex and Gender Information Value Date Recorded Sex Assigned at Not on file Legal Sex Female 4:46 AM AUTOMOBILE BRAKES BONDER Gender Identity Not on file Sexual Orientation Not on file documented as of this encounter Plan of Treatment Not on file documented as of this encounter Visit Diagnoses Diagnosis Threatened , antepartum- Primary documented in this encounter Care Teams Marine Engine Machinist Apprentice Relationship Specialty Start Date End Date Ollie Avilez MD PCP - General Family Practice 05/21/15 documented as of this encounter
--- OUTSIDE RECORDS SUMMARY | 2025-01-24 10:27 | XMS_ITS | Encounter Summary ---
Author Organization [facility] Address [address] [place] [address] Care Team Providers Care Pellet Mill Operator Name Role Phone Ollie Avilez MD Primary Care Provider + Encounter Details Date Type Department Care Team (Latest Contact Info) Description 11/06/2004 Outpatient Historical [facility] Medicine[address] [phone] Mack Hayden MD [address] [place] [id number] URGE INCONTINENCE (Primary Dx); OTHER MALAISE AND FATIGUE; URIN TRACT INFECTION NOS; CLASS MIGRAIN W/O MENTN INTRACTABLE Social History Tobacco Use Types Packs/Day Years Used Date Smoking Tobacco: Never Assessed Comments Unknown Sex and Gender Information Value Date Recorded Sex Assigned at Not on file Legal Sex Female 4:46 AM VERIFICATION MANAGER Gender Identity Not on file Sexual Orientation Not on file documented as of this encounter Plan of Treatment Not on file documented as of this encounter Visit Diagnoses Diagnosis Urge incontinence- Primary Other malaise and fatigue Urinary tract infection, site not specified Migraine with aura, without mention of intractable migraine without mention of status migrainosus documented in this encounter Care Teams Pellet Mill Operator Relationship Specialty Start Date End Date Ollie Avilez MD PCP - General Family Practice 05/21/15 documented as of this encounter
--- OUTSIDE RECORDS SUMMARY | 2025-01-24 10:27 | XMS_ITS | Encounter Summary ---
Author Organization [facility] Address [address] [place] [address] Care Team Providers Care Boat Carpenter Name Role Phone Ollie Avilez MD Primary Care Provider + Encounter Details Date Type Department Care Team (Latest Contact Info) Description 12/11/1997 Outpatient Historical [facility] Medicine [address] [phone] Sofia Bills MD [address] [place] [phone] care and examination immediately after delivery (Primary Dx) Social History Tobacco Use Types Packs/Day Years Used Date Smoking Tobacco: Never Assessed Comments Unknown Sex and Gender Information Value Date Recorded Sex Assigned at Not on file Legal Sex Female 4:46 AM HEATING AND VENTILATING WORKER Gender Identity Not on file Sexual Orientation Not on file documented as of this encounter Plan of Treatment Not on file documented as of this encounter Visit Diagnoses Diagnosis care and examination immediately after delivery- Primary documented in this encounter Care Teams Boat Carpenter Relationship Specialty Start Date End Date Ollie Avilez MD PCP - General Family Practice 05/21/15 documented as of this encounter
--- OUTSIDE RECORDS SUMMARY | 2025-01-24 10:28 | XMS_ITS | Encounter Summary ---
Author Organization [facility] Address [address] [place] [address] Care Team Providers Care Installment Agent Name Role Phone Ollie Avilez MD Primary Care Provider + Encounter Details Date Type Department Care Team (Latest Contact Info) Description 12/08/1999 Outpatient Historical [facility] Medicine[address] [address] Carrington Lam MD [address] [phone] Supervision of other normal (Primary Dx) Social History Tobacco Use Types Packs/Day Years Used Date Smoking Tobacco: Never Assessed Comments Unknown Sex and Gender Information Value Date Recorded Sex Assigned at Not on file Legal Sex Female 4:46 AM COMMISSION CLERK Gender Identity Not on file Sexual Orientation Not on file documented as of this encounter Plan of Treatment Not on file documented as of this encounter Visit Diagnoses Diagnosis Supervision of other normal - Primary documented in this encounter Care Teams Installment Agent Relationship Specialty Start Date End Date Ollie Avilez MD PCP - General Family Practice 05/21/15 documented as of this encounter
--- OUTSIDE RECORDS SUMMARY | 2025-01-24 10:28 | XMS_ITS | Encounter Summary ---
Author Organization [facility] Address [address] [place] [address] Care Team Providers Care Cupola Man Name Role Phone Ollie Avilez MD Primary Care Provider + Encounter Details Date Type Department Care Team (Latest Contact Info) Description 09/02/1999 Outpatient Historical [facility] Medicine[address] [address] Carrington Lam MD [address] [phone] Supervision of other normal (Primary Dx) Social History Tobacco Use Types Packs/Day Years Used Date Smoking Tobacco: Never Assessed Comments Unknown Sex and Gender Information Value Date Recorded Sex Assigned at Not on file Legal Sex Female 4:46 AM DIE BARBER Gender Identity Not on file Sexual Orientation Not on file documented as of this encounter Plan of Treatment Not on file documented as of this encounter Visit Diagnoses Diagnosis Supervision of other normal - Primary documented in this encounter Care Teams Cupola Man Relationship Specialty Start Date End Date Ollie Avilez MD PCP - General Family Practice 05/21/15 documented as of this encounter
--- OUTSIDE RECORDS SUMMARY | 2025-01-24 10:28 | XMS_ITS | Encounter Summary ---
Author Organization [facility] Address [address] [facility] Attn: [place] [address] Care Team Providers Care Machine Shop Lead Man Name Role Phone Ollie Avilez MD Primary Care Provider + Encounter Details Date Type Department Care Team (Late st Contact Info) Description 01/07/2000 Outpatient Historical Carrington Lam MD [address] [facility] [address] [place] [phone] Social History Tobacco Use Types Packs/Day Years Used Date Smoking Tobacco: Never Assessed Comments Unknown Sex and Gender Information Value Date Recorded Sex Assigned at Not on file Legal Sex 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
--- OUTSIDE RECORDS SUMMARY | 2025-01-24 10:28 | XMS_ITS | Encounter Summary ---
Author Organization [facility] Address [address] [facility] Attn: [place] [address] Care Team Providers Care Controlled Atmospheric Furnace Brazer Name Role Phone Ollie Avilez MD Primary Care Provider + Encounter Details Date Type Department Care Team (Late st Contact Info) Description 08/06/1999 Outpatient Historical Carrington Lam MD [address] [facility] [address] [place] [phone] Social History Tobacco Use Types Packs/Day Years Used Date Smoking Tobacco: Never Assessed Comments Unknown Sex and Gender Information Value Date Recorded Sex Assigned at Not on file Legal Sex Female 4:46 AM BENCH LOOM WEAVER Gender Identity Not on file Sexual Orientation Not on file documented as of this encounter Plan of Treatment Not on file documented as of this encounter Visit Diagnoses Not on filedocumented in this encounter Care Teams Controlled Atmospheric Furnace Brazer Relationship Specialty Start Date End Date Ollie Avilez MD PCP - General Family Practice 05/21/15 documented as of this encounter
--- OUTSIDE RECORDS SUMMARY | 2025-01-24 10:28 | XMS_ITS | Encounter Summary ---
Author Organization [facility] Address [address] [place] [address] Care Team Providers Care Program Paraprofessional Name Role Phone Ollie Avilez MD Primary Care Provider + Encounter Details Date Type Department Care Team (Latest Contact Info) Description 04/02/2000 Outpatient Historical [facility] FI[facility] TRUCK DRIVER Steve Lewis, DO [address] [place] [address] Supervision of other normal (Primary Dx) Social History Tobacco Use Types Packs/Day Years Used Date Smoking Tobacco: Never Assessed Comments Unknown Sex and Gender Information Value Date Recorded Sex Assigned at Not on file Legal Sex Female 4:46 AM WET MACHINE OPERATOR Gender Identity Not on file Sexual Orientation Not on file documented as of this encounter Plan of Treatment Not on file documented as of this encounter Visit Diagnoses Diagnosis Supervision of other normal - Primary documented in this encounter Care Teams Program Paraprofessional Relationship Specialty Start Date End Date Ollie Avilez MD PCP - General Family Practice 05/21/15 documented as of this encounter
--- OUTSIDE RECORDS SUMMARY | 2025-01-24 10:28 | XMS_ITS | Encounter Summary ---
Author Organization [facility] Address [address] [place] [address] Care Team Providers Care Section Forest Fire Warden Name Role Phone Ollie Avilez MD Primary Care Provider + Encounter Details Date Type Department Care Team (Latest Contact Info) Description 02/27/2000 Outpatient Historical [facility] [place] [facility] DEPARTMENT MANAGER Steve Lewis, DO [address] [place] [address] Supervision of other normal (Primary Dx) Social History Tobacco Use Types Packs/Day Years Used Date Smoking Tobacco: Never Assessed Comments Unknown Sex and Gender Information Value Date Recorded Sex Assigned at Not on file Legal Sex Female 4:46 AM MOBILE LOUNGE DRIVER OR OPERATOR Gender Identity Not on file Sexual Orientation Not on file documented as of this encounter Plan of Treatment Not on file documented as of this encounter Visit Diagnoses Diagnosis Supervision of other normal - Primary documented in this encounter Care Teams Section Forest Fire Warden Relationship Specialty Start Date End Date Ollie Avilez MD PCP - General Family Practice 05/21/15 documented as of this encounter
--- OUTSIDE RECORDS SUMMARY | 2025-01-24 10:28 | XMS_ITS | Encounter Summary ---
Author Organization [facility] Address [address] [place] [address] Care Team Providers Care Heating And Ventilating Drafter Name Role Phone Ollie Avilez MD Primary Care Provider + Encounter Details Date Type Department Care Team (Latest Contact Info) Description 01/13/2000 Outpatient Historical [facility] Medicine[address] [address] Carrington Lam MD [address] [phone] Supervision of other normal (Primary Dx) Social History Tobacco Use Types Packs/Day Years Used Date Smoking Tobacco: Never Assessed Comments Unknown Sex and Gender Information Value Date Recorded Sex Assigned at Not on file Legal Sex Female 4:46 AM OUTSIDE MEDICAL SALES REPRESENTATIVE Gender Identity Not on file Sexual Orientation Not on file documented as of this encounter Plan of Treatment Not on file documented as of this encounter Visit Diagnoses Diagnosis Supervision of other normal - Primary documented in this encounter Care Teams Heating And Ventilating Drafter Relationship Specialty Start Date End Date Ollie Avilez MD PCP - General Family Practice 05/21/15 documented as of this encounter
--- OUTSIDE RECORDS SUMMARY | 2025-01-24 10:28 | XMS_ITS | Encounter Summary ---
Author Organization [facility] Address [address] [facility] Attn: Epic Prelude ADT [place] [address] Care Team Providers Care Chef Head Name Role Phone Ollie Avilez MD Primary Care Provider + Encounter Details Date Type Department Care Team (Late st Contact Info) Description 12/10/1999 Outpatient Historical Delilah Jeff, [facility] [address], [address] [place] [address] Social History Tobacco Use Types Packs/Day Years Used Date Smoking Tobacco: Never Assessed Comments Unknown Sex and Gender Information Value Date Recorded Sex Assigned at Not on file Legal Sex Female 4:46 AM DIRECTOR OF BUSINESS APPLICATIONS Gender Identity Not on file Sexual Orientation Not on file documented as of this encounter Plan of Treatment Not on file documented as of this encounter Visit Diagnoses Not on filedocumented in this encounter Care Teams Chef Head Relationship Specialty Start Date End Date Ollie Avilez MD PCP - General Family Practice 05/21/15 documented as of this encounter
--- OUTSIDE RECORDS SUMMARY | 2025-01-24 10:28 | XMS_ITS | Encounter Summary ---
Author Organization [facility] Address [address] [facility] Attn: [place] [address] Care Team Providers Care Office Machine Repair Shop Supervisor Name Role Phone Ollie Avilez MD Primary Care Provider + Encounter Details Date Type Department Care Team (Late st Contact Info) Description 10/30/1999 Outpatient Historical Carrington Lam MD [address] [facility] [address] [place] [address] Social History Tobacco Use Types Packs/Day Years Used Date Smoking Tobacco: Never Assessed Comments Unknown Sex and Gender Information Value Date Recorded Sex Assigned at Not on file Legal Sex Female 4:46 AM ENERGY TRADING ANALYST Gender Identity Not on file Sexual Orientation Not on file documented as of this encounter Plan of Treatment Not on file documented as of this encounter Visit Diagnoses Not on filedocumented in this encounter Care Teams Office Machine Repair Shop Supervisor Relationship Specialty Start Date End Date Ollie Avilez MD PCP - General Family Practice 05/21/15 documented as of this encounter
--- OUTSIDE RECORDS SUMMARY | 2025-01-24 10:28 | XMS_ITS | Encounter Summary ---
Author Organization [facility] Address [address] [place] [address] Care Team Providers Care Pediatrician/Medical Doctor Name Role Phone Ollie Avilez MD Primary Care Provider + Encounter Details Date Type Department Care Team (Latest Contact Info) Description 09/18/1999 Outpatient [facility] Medicine[address] [address] Carrington Lam MD [address] [phone] Supervision of other normal (Primary Dx); Tuberculosis contact Social History Tobacco Use Types Packs/Day Years Used Date Smoking Tobacco: Never Assessed Comments Unknown Sex and Gender Information Value Date Recorded Sex Assigned at Not on file Legal Sex Female 4:46 AM MRP CONTROLLER Gender Identity Not on file Sexual Orientation Not on file documented as of this encounter Plan of Treatment Not on file documented as of this encounter Visit Diagnoses Diagnosis Supervision of other normal - Primary Tuberculosis contact Contact with or exposure to tuberculosis documented in this encounter Care Teams Pediatrician/Medical Doctor Relationship Specialty Start Date End Date Ollie Avilez MD PCP - General Family Practice 05/21/15 documented as of this encounter
--- OUTSIDE RECORDS SUMMARY | 2025-01-24 10:28 | XMS_ITS | Encounter Summary ---
Author Organization [facility] Address [address] [place] [address] Care Team Providers Care Psychology Professor Name Role Phone Ollie Avilez MD Primary Care Provider + Encounter Details Date Type Department Care Team (Latest Contact Info) Description 02/10/2000 Outpatient Historical [facility] [place] BOLT THREADER Steve Lewis, DO [address] [place] [address] Supervision of other normal (Primary Dx) Social History Tobacco Use Types Packs/Day Years Used Date Smoking Tobacco: Never Assessed Comments Unknown Sex and Gender Information Value Date Recorded Sex Assigned at Not on file Legal Sex Female 4:46 AM COAL OR ORE CONTROLLER Gender Identity Not on file Sexual Orientation Not on file documented as of this encounter Plan of Treatment Not on file documented as of this encounter Visit Diagnoses Diagnosis Supervision of other normal - Primary documented in this encounter Care Teams Psychology Professor Relationship Specialty Start Date End Date Ollie Avilez MD PCP - General Family Practice 05/21/15 documented as of this encounter
--- OUTSIDE RECORDS SUMMARY | 2025-01-24 10:28 | XMS_ITS | Encounter Summary ---
Author Organization [facility] Address [address] [place] [address] Care Team Providers Care Customer Business Manager Name Role Phone Ollie Avilez MD Primary Care Provider + Encounter Details Date Type Department Care Team (Latest Contact Info) Description 07/18/1999 Outpatient Historical [facility] Medicine[address] [address] Carrington Lam MD [address] [phone] Fetus or affected by ectopic of mother (Primary Dx); Encounter for long-term (current) use of other medications Social History Tobacco Use Types Packs/Day Years Used Date Smoking Tobacco: Never Assessed Comments Unknown Sex and Gender Information Value Date Recorded Sex Assigned at Not on file Legal Sex Female 4:46 AM APPEALS MANAGER Gender Identity Not on file Sexual Orientation Not on file documented as of this encounter Plan of Treatment Not on file documented as of this encounter Visit Diagnoses Diagnosis Fetus or affected by ectopic of mother- Primary Encounter for long-term (current) use of other medications documented in this encounter Care Teams Customer Business Manager Relationship Specialty Start Date End Date Ollie Avilez MD PCP - General Family Practice 05/21/15 documented as of this encounter
--- OUTSIDE RECORDS SUMMARY | 2025-01-24 10:28 | XMS_ITS | Encounter Summary ---
Author Organization [facility] Address [address] [place] [address] Care Team Providers Care Electronic Warfare Linguist Name Role Phone Ollie Avilez MD Primary Care Provider + Encounter Details Date Type Department Care Team (Latest Contact Info) Description 01/02/2000 Outpatient Historical [facility] Medicine[address] [address] Carrington Lam MD [address] [phone] Supervision of other normal (Primary Dx) Social History Tobacco Use Types Packs/Day Years Used Date Smoking Tobacco: Never Assessed Comments Unknown Sex and Gender Information Value Date Recorded Sex Assigned at Not on file Legal Sex Female 4:46 AM ONLINE EDITOR Gender Identity Not on file Sexual Orientation Not on file documented as of this encounter Plan of Treatment Not on file documented as of this encounter Visit Diagnoses Diagnosis Supervision of other normal - Primary documented in this encounter Care Teams Electronic Warfare Linguist Relationship Specialty Start Date End Date Ollie Avilez MD PCP - General Family Practice 05/21/15 documented as of this encounter
--- OUTSIDE RECORDS SUMMARY | 2025-01-24 10:28 | XMS_ITS | Encounter Summary ---
Author Organization [facility] Address [address] [place] [address] Care Team Providers Care Mailing Machine Helper Name Role Phone Ollie Avilez MD Primary Care Provider + Encounter Details Date Type Department Care Team (Latest Contact Info) Description 12/12/1999 Outpatient Historical [facility] Medicine[address] [address] Carrington Lam MD [address] [phone] Supervision of other normal (Primary Dx) Social History Tobacco Use Types Packs/Day Years Used Date Smoking Tobacco: Never Assessed Comments Unknown Sex and Gender Information Value Date Recorded Sex Assigned at Not on file Legal Sex Female 4:46 AM MOLD CUTTING MACHINE OPERATOR Gender Identity Not on file Sexual Orientation Not on file documented as of this encounter Plan of Treatment Not on file documented as of this encounter Visit Diagnoses Diagnosis Supervision of other normal - Primary documented in this encounter Care Teams Mailing Machine Helper Relationship Specialty Start Date End Date Ollie Avilez MD PCP - General Family Practice 05/21/15 documented as of this encounter
--- OUTSIDE RECORDS SUMMARY | 2025-01-24 10:28 | XMS_ITS | Encounter Summary ---
Author Organization [facility] Address [address] [place] [address] Care Team Providers Care Supervisor Finish End Name Role Phone Ollie Avilez MD Primary Care Provider + Encounter Details Date Type Department Care Team (Latest Contact Info) Description 08/05/1999 Outpatient Historical [facility] Medicine[address] [address] Carrington Lam MD [address] [phone] Threatened , antepartum (Primary Dx) Social History Tobacco Use Types Packs/Day Years Used Date Smoking Tobacco: Never Assessed Comments Unknown Sex and Gender Information Value Date Recorded Sex Assigned at Not on file Legal Sex Female 4:46 AM WHARF TALLY CLERK Gender Identity Not on file Sexual Orientation Not on file documented as of this encounter Plan of Treatment Not on file documented as of this encounter Visit Diagnoses Diagnosis Threatened , antepartum- Primary documented in this encounter Care Teams Supervisor Finish End Relationship Specialty Start Date End Date Ollie Avilez MD PCP - General Family Practice 05/21/15 documented as of this encounter
--- OUTSIDE RECORDS SUMMARY | 2025-01-24 10:28 | XMS_ITS | Encounter Summary ---
Author Organization [facility] Address [address] [place] [address] Care Team Providers Care Water Main Inspector Name Role Phone Ollie Avilez MD Primary Care Provider + Encounter Details Date Type Department Care Team (Latest Contact Info) Description 04/08/2000 Outpatient Historical [facility] [place] [facility] AIDE Steve Lewis, DO [address] [place] [address] Supervision of other normal (Primary Dx) Social History Tobacco Use Types Packs/Day Years Used Date Smoking Tobacco: Never Assessed Comments Unknown Sex and Gender Information Value Date Recorded Sex Assigned at Not on file Legal Sex Female 4:46 AM SUPERVISOR DETASSELING CREW Gender Identity Not on file Sexual Orientation Not on file documented as of this encounter Plan of Treatment Not on file documented as of this encounter Visit Diagnoses Diagnosis Supervision of other normal - Primary documented in this encounter Care Teams Water Main Inspector Relationship Specialty Start Date End Date Ollie Avilez MD PCP - General Family Practice 05/21/15 documented as of this encounter
--- OUTSIDE RECORDS SUMMARY | 2025-01-24 10:28 | XMS_ITS | Encounter Summary ---
Author Organization [facility] Address [address] [place] [address] Care Team Providers Care Timber Buyer Name Role Phone Ollie vAilez MD Primary Care Provider + Encounter Details Date Type Department Care Team (Latest Contact Info) Description 10/30/1999 Outpatient Historical [facility] Medicine[address] [phone] Carrington Lam MD [address] [phone] Supervision of other normal (Primary Dx) Social History Tobacco Use Types Packs/Day Years Used Date Smoking Tobacco: Never Assessed Comments Unknown Sex and Gender Information Value Date Recorded Sex Assigned at Not on file Legal Sex Female 4:46 AM [employer] Gender Identity Not on file Sexual Orientation Not on file documented as of this encounter Plan of Treatment Not on file documented as of this encounter Visit Diagnoses Diagnosis Supervision of other normal - Primary documented in this encounter Care Teams Timber Buyer Relationship Specialty Start Date End Date Ollie Avilez MD PCP - General Family Practice 05/21/15 documented as of this encounter
[2025-01-24 10:33] LABS: Glucose Urine UA Negative (Normal); Nitrate Urine Negative (Negative); Specific Gravity, Urine 1.017 (1.005-1.030)
[2025-01-24 10:35] LABS: Add Urine Microscopic? YES
[2025-01-24 10:41] VITALS: BP 157/86; PULSE 88; RESP 16; O2SAT 99
[2025-01-24 10:41] LABS: Hematocrit 41.3 % (36-47); Hemoglobin 13.60 g/dL (11.27-16.99); Mean Corpuscular HGB Conc 32.9 g/dL (30-55); Mean Corpuscular Hemoglobin 27.8 pg (27-33); Mean Corpuscular Volume 84.5 fl (85-98); Nucleated Red Blood Cells % 0 %; Platelet Count 272 10^3/cmm (157-399); Red Blood Count 4.89 10^6/uL (3.85-5.65); White Blood Count 9.90 10^3/uL (3.29-11.43)
[2025-01-24 11:02] LABS: Troponin(5th) Baseline 8 ng/L (0-10)
--- NOTE | 2025-01-24 11:02 | PC.PHAR ---
Patient sttaes she is not consistent on her medications . Patient states she found a old bottle of metformin and took one 01/23/25 at around 7pm .Last fill I show of metformin is 10/02/24 30days . Patient also states she had a bottle of Lisinipril 20mg adn took one 01/24/25 am hoping it would make her feel better . Patient does take Ozempic adn Had a shot on Wednesday.
[2025-01-24 11:03] LABS: Alanine Aminotransferase 17 U/L (0-33); Albumin Level 4.5 g/dL (3.5-5.2); Alkaline Phosphatase 113 U/L (35-105); Anion Gap 17.5 (5-19); Aspartate Amino Transferase 11 U/L (0-32); Blood Urea Nitrogen 12 mg/dL (6-20); Calcium 9.3 mg/dL (8.5-10.5); Carbon Dioxide 25 mmol/L (22-29); Chloride 99 mmol/L (98-107); Creatinine Clr Calc Pharmacy 115.6456; Globulin 2.3 g/dL (1.3-4.6); Glucose 166 mg/dL (65-115); Osmolality Calculated 288 mOsm/kg (285-295); Potassium 4.5 mmol/L (3.5-5.1); Sodium 137 mmol/L (136-145); Total Protein 6.8 g/dL (6.6-8.7)
[2025-01-24 12:03] VITALS: BP 144/72; PULSE 77; RESP 16; O2SAT 96
--- NOTE | 2025-01-24 12:07 | ECG_ITS ---
[facility]24 Pat Name: Ginger Aguilera Department: Room: Gender: Female Design Technology Teacher: : 1970 Requested By: Reginald Day Order Number: [id number] Reading MD: LIA GALAVIZ Measurements Intervals [place] Rate: 85 P: 59 ND: 157 QRS: 41 QRSD: 86 T: 75 QT: 344 QTc: 410 Interpretive Statements SINUS RHYTHM Compared to ECG 01/24/2025 10:07:25 T-wave abnormality no longer present Electronically Signed On 01-27-2025 21:16:10 CDT by LIA GALAVIZ [id number]
[2025-01-24 12:58] LABS: Troponin 5 2HR 7.64 ng/L (0-10)
[2025-01-24 13:00] LABS: Troponin 5 2HR Delta -0.36 ABS# (0-10)
--- NOTE | 2025-01-26 08:11 | DCPLANNER ---
faxed outpatient maría order to scheduling
== END 2025-01-24 13:34 | disposition home or self-care (01) ==
PROVIDERS: Emergency Provider Family Medicine; Family Provider Family Medicine; PCP Family Medicine
DX: R07.89 Other chest pain (principal); E11.9 Type 2 diabetes mellitus without complications; Z79.84 Long term (current) use of oral hypoglycemic drugs; I10 Essential (primary) hypertension
CPT/HCPCS: 36415; 36416; 71045; 80053; 81001; 82962; 84484; 85025; 93005; 99285